=== PATIENT | female | born 1995 | race Caucasian/White ===

== ENCOUNTER → 2016-04-22 | Outpatient (CLI) | payer MEDICAID ==
[~2016-04-22] MED LIST: BACTROBAN2% TP; CITALOPRAM HYDR10 MG PO; IBUPROFEN800 MG PO; KEFLEX 500MG.500 MG PO; LORTAB 5/500 501 TAB PO; MIRENA52 MG IU; MOTRIN600 MG PO; Meclizine25 MG PO; NOMEDS XX; PHENERGAN25 M3 PO; SEPTRA DS 800 M1 TAB PO; ZOFRAN ODT4 MG PO
--- NOTE | 2016-04-23 11:01 | RADIOLOGY REPORT PS360 ---
US TRANSVAGINAL PREG ORDERING PHYSICIAN : Anjum Villalta MD PATIENT AGE: 21 years GENDER: Female INDICATION: DATES for early gestation TECHNIQUE: Transvaginal pelvic ultrasound COMPARISON: None FINDINGS Single viable intrauterine gestation . Cardiac activity is identified. Yolk sac identified. Cervix long and closed measuring 2.8 cm length. The Amnion identified Placenta appears to be likely forming posterior. measurements today yield an average ultrasound age of 10 weeks 0 days. (This compares to gestational age 10 weeks 1 days based on LMP of 02/11/2016.) Today's Mean sac size 4.25 cm = 9 weeks 5 days. CRL = 3.39 cm = 10 weeks 2 days. Yolk sac 0.65 cm. Heart rate 151 BPM. Right ovary 3.1 similar x1.3 x 1.8 cm. Left ovary 2.5 x 1.4 x 1.9 cm. No fluid in cul-de-sac. IMPRESSION: Single viable early intrauterine gestation. Average ultrasound age 10 weeks 0 days CRL = 10 week 0 day
== END ==
LOC: RAD 12:40
DX: O26.841 Uterine size-date discrepancy, first trimester (principal)

== ENCOUNTER 2016-07-07 12:08 | Outpatient (CLI) | payer MEDICAID ==
[~2016-07-07] VITALS: Ht 175.3 cm; Wt 90.7 kg
[2016-07-07 12:25] VITALS: BP 123/65
[2016-07-07] MEDS ORDERED: NATURAL IRON65 MG PO (12:39)
[2016-07-07 12:41] LABS: URINE BILIRUBIN - DIPSTICK NEGATIVE (NEG); URINE BLOOD NEGATIVE (NEG)
[2016-07-07 12:48] LABS: URINE SQUAMOUS CELLS 20-50 #/hpf (0-5)
== END 2016-07-07 13:12 | disposition home or self-care (01) ==
LOC: OBOUT 12:08 → OB 12:10 → OBOUT 13:12 → RAD 07-10 13:00
PROVIDERS: Obstetrics & Gynecology
DX: O26.92 Pregnancy related conditions, unspecified, second trimester (principal); Z3A.21 21 weeks gestation of pregnancy; R10.32 Left lower quadrant pain; R25.2 Cramp and spasm

== ENCOUNTER 2016-11-03 17:50 | Outpatient (CLI) | payer MEDICAID ==
[~2016-11-03] VITALS: Ht 175.3 cm; Wt 97.1 kg
[~2016-11-03 17:50] MED LIST changes: +NATURAL IRON65 MG PO; +PRENATAL PLUS1 TA1 PO; +VISTARIL25 M1 PO
[2016-11-03 18:10] VITALS: BP 135/82
[2016-11-03 18:10] LABS: URINE BLOOD NEGATIVE (NEG)
[2016-11-03 18:25] LABS: URINE BILIRUBIN - DIPSTICK NEGATIVE (NEG)
[2016-11-03 19:02] LABS: HEMOGLOBIN 12.5 g/dL (12.2-16.2); LYMPH % 18.5 % (10-50.0)
[2016-11-03 19:54] LABS: ABO BLOOD TYPE O; RH BLOOD TYPE POSITIVE
== END 2016-11-03 20:15 | disposition home or self-care (01) ==
LOC: OBOUT 17:50 → OB 17:51 → OBOUT 20:15
PROVIDERS: Obstetrics & Gynecology
DX: O60.03 Preterm labor without delivery, third trimester (principal); Z3A.38 38 weeks gestation of pregnancy

== ENCOUNTER 2016-11-11 01:24 | Inpatient (IN) | payer MEDICAID ==
[~2016-11-11] VITALS: Ht 175.3 cm; Wt 96.6 kg
[2016-11-11 05:04] LABS: LYMPH # 2.7 K/mm3 (0.7-4.5); LYMPH % 20.3 % (10-50.0)
[2016-11-11 05:05] VITALS: BP 134/68
[2016-11-11] MEDS ORDERED: NOMEDS XX (05:12)
[2016-11-11 05:42] LABS: ABO BLOOD TYPE O; RH BLOOD TYPE POSITIVE
[2016-11-11 07:17] VITALS: BP 133/54
--- NOTE | 2016-11-11 08:20 | LABOR NOTE ---
Laboring Subjective Subjective Date 11/11/16 Time 0818 Subjective: Pt is having regular contractions Laboring Objective Objective NST: Reactive Contractions: q 2-3 minutes Cervical dilation: 3 Effacement: 75% Station: -2 Membranes are: Artificially ruptured (with clear fluid) Fetus monitoring? Yes Type: Internal Comment: I inserted an IUPC and clip. Laboring Assessment Assessment Progressing? Yes Cephalopelvic disproportion? No Problem List: 1. 2. Normal delivery Laboring Plan Plan Anethesia for epidural? No Continue to labor down? Yes Plan for ? No Continue to monitor? Yes Start pushing? No at 0820
--- NOTE | 2016-11-11 10:02 | LABOR NOTE ---
Laboring Subjective Subjective Date 11/11/16 Time 1001 Subjective: Pt is having regular contractions Laboring Objective Objective NST: Reactive Contractions: q 2-3 minutes Cervical dilation: 4 Effacement: 90% Station: -2 Membranes are: Artificially ruptured (with clear fluid) Fetus monitoring? Yes Type: Internal Laboring Assessment Assessment Progressing? Yes Cephalopelvic disproportion? No Problem List: 1. Normal delivery Laboring Plan Plan Anethesia for epidural? Yes Continue to labor down? Yes Plan for ? No Continue to monitor? Yes Start pushing? No at 1002
--- NOTE | 2016-11-11 13:41 | LABOR NOTE ---
Laboring Subjective Subjective Date 11/11/16 Time 1340 Subjective: Pt is having regular contractions Laboring Objective Objective NST: Reactive Contractions: q 2-3 minutes Cervical dilation: 4-5 Effacement: 75% Station: -2 Membranes are: Artificially ruptured Fetus monitoring? Yes Type: Internal Laboring Assessment Assessment Progressing? Yes Cephalopelvic disproportion? No Problem List: 1. Normal delivery Laboring Plan Plan Anethesia for epidural? Yes Continue to labor down? Yes Plan for ? No Continue to monitor? Yes Start pushing? No at 1341
--- NOTE | 2016-11-11 16:45 | LABOR NOTE ---
Laboring Subjective Subjective Date 11/11/16 Time 1644 Subjective: Pt is having regular contractions Laboring Objective Objective NST: Reactive Contractions: q 2-3 minutes Cervical dilation: 6-7 Effacement: 100% Station: 0 Membranes are: Artificially ruptured Fetus monitoring? Yes Type: Internal Laboring Assessment Assessment Progressing? Yes Cephalopelvic disproportion? No Problem List: 1. Normal delivery Laboring Plan Plan Anethesia for epidural? Yes Continue to labor down? Yes Plan for ? No Continue to monitor? Yes Start pushing? No at 1644
--- NOTE | 2016-11-11 18:56 | Delivery Note ---
Delivery note Delivery date: 11/11/16 Delivery time: 1826 Anesthesia: Epidural, Chris Williamson Was labor medically induced? No Gestational age in weeks: 39 weeks Days: 2 days Delivery prior to 39 weeks? No Sex: female score at one minute: 8 at 5 minutes: 9 Type of suction: bulb AF: Clear fluid LAC or MLE: LAC (1st degree) Delivery procedure: Normal Delivery Delivery of placenta: spontaneous Clinical note She is a 21-year-old 1 now para 0 who was 39 and 1 weeks gestational age. She is had a considerable amount of pressure as well as irregular contractions. As result of this we elected to augment her labor. She was started on IV oxytocin had her membranes ruptured. Under labor epidural she progressed to full dilation and delivered spontaneously a liveborn female child at 6:25 PM in the afternoon of November 11, 2016. On delivery the head there was a tight nuchal cord which was doubly clamped and reduced. The rest of the 's body then delivered atraumatically. The oropharynx and nasopharynx were bulb suctioned. The baby cried spontaneously. The baby was then taken over to the warmer where the nurses assigned Apgars of 8 at 1 and 9 at 5 minutes. We then obtained cord blood as well as cord pH. The pH is pending. Using gentle traction on the cord and countertraction on the fundus I was able to easily deliver the placenta intact. It had a normal three-vessel cord. She had a first-degree perineal and vaginal laceration was repaired with interrupted 3-0 Vicryl repeat suture. She has O positive blood, she is rubella immune and was group B streptococcus negative. She plans to bottlefeed. Her student success coach Dr. park. Estimated blood loss was 600 mL. at 7660
[2016-11-11 19:15] VITALS: BP 137/64
[2016-11-12 06:50] LABS: HEMOGLOBIN 10.9 g/dL (12.2-16.2)
--- NOTE | 2016-11-12 07:59 | ACUTE CARE PROGRESS NOTE (QUA) ---
Progress Notes Subjective Date 11/12/16 Time 0758 Note She is doing very well this morning. She is eating and drinking and ambulating. She is bottlefeeding. Her lochia is normal. Patient/family reports: feeling better, no complaints Objective Findings Last VS-Temp:98.6 B/P:137/64 Pulse:107 Resp:16 SaO2: Last weight lbs:213 oz:0 K.616 Method:Stated Laboratory Tests 11/12/16 0602: Hgb 10.9 L, Hct 32.5 L 11/11/16 1900: Cord Blood pH 7.24 L Exam General appearance: normal appearance, alert, awake, no acute distress Reviewed: vital signs, lab results Assessment/Plan Problem List 1. Normal delivery Patient condition Improving, Stable Plan: continue current care This inpt stay is expected to cross 2 MNs from start of care Yes Comments: She is doing very well. We'll plan to send her home tomorrow. at 0318
[2016-11-12 08:36] VITALS: BP 128/58
[2016-11-12 20:17] VITALS: BP 140/62
--- NOTE | 2016-11-13 08:34 | ACUTE CARE PROGRESS NOTE (QUA) ---
Progress Notes Subjective Date 11/13/16 Time 0833 Note She is doing very well this morning. She is eating and drinking and ambulating. She is breast-feeding. Her lochia is normal. Patient/family reports: feeling better, no complaints Objective Findings Last VS-Temp:98.0 B/P:140/62 Pulse:66 Resp:16 SaO2: Last weight lbs:213 oz:0 K.616 Method:Stated Exam General appearance: normal appearance, alert, awake, no acute distress Reviewed: vital signs, lab results Assessment/Plan Problem List 1. Normal delivery Patient condition Improving, Stable Plan: continue current care, initiate discharge plan This inpt stay is expected to cross 2 MNs from start of care Yes Comments: She is doing very well and we'll plan to send her home this morning. at 0833
[2016-11-13] MEDS ORDERED: MOTRIN 400MG.400 MG PO (08:37)
--- NOTE | 2016-11-13 08:37 | Discharge Summary ---
Discharge Summary Admission date: 11/11/16 Discharge date: 11/13/16 Discharge diagnoses: Term , spontaneous vaginal delivery Clinical note: She is a 21-year-old 1 now para 1 who was 39 and 2 weeks gestational age. She was having pressure and occasional contractions. She was very uncomfortable. As result of that we elected to augment her labor. Course in hospital: She was started on IV oxytocin and had her membranes ruptured. She progressed under labor epidural to full dilation and delivered spontaneously a liveborn female child at 6:27 PM in the afternoon of November 11, 2016. The baby had Apgars of 8 at 1 and 9 at 5 minutes. She weighed 7 lbs. 0 oz. She has done well and has remained afebrile throughout her hospitalization. She is eating and drinking and ambulating. She is breast- feeding. She has O positive blood, she is rubella immune and was group B streptococcus negative. Her bank sales and service manager is Dr. park. Laboratory Tests 11/12/16 0602: Hgb 10.9 L, Hct 32.5 L 11/11/16 1900: Cord Blood pH 7.24 L 11/11/16 0435: MCH 31.1 11/11/16 0435: WBC 13.1 H, RBC 3.86 L, Hgb 12.0 L, Hct 35.0 L, MCV 90.6, RDW 12.8, Plt Count 344, MPV 8.1, Gran % 73.2, Gran # 9.6 H, Lymphocytes % 20.3, Monocytes % 4.3, Eosinophils % 1.8, Basophils % 0.4, Lymphocytes # 2.7, Monocytes # 0.6, Eosinophils # 0.2, Basophils # 0.1, PUBS MCHC 34.3, Antibody Screen NEGATIVE, Miscellaneous Test POSITIVE Plans for ongoing care: She is discharged home to follow-up with me in approximately 2 weeks' time. Discharge medications She'll continue with her vitamins and iron. She was given a prescription for Percocet 5/325, 12 tablets. She was given a pressure for Motrin 400 mg, 40 tablets. DC/follow-up instructions She was given the usual instructions with respect to limiting her activity, driving and sexual activity. Condition at discharge Stable and improved at 0836
[2016-11-13] MEDS ORDERED: PERCOCET 5/3251 EACH PO (08:38)
[2016-11-13 09:32] VITALS: BP 130/73
== END 2016-11-13 12:22 | disposition home or self-care (01) | DRG 775 ==
LOC: OB 01:24
PROVIDERS: Nurse Practitioner Obstetrics & Gynecology
PROC: 0HQ9XZZ Repair Perineum Skin, External Approach (ICD-10-PCS; principal; 2016-11-11)
PROC: 10E0XZZ Delivery of Products of Conception, External Approach (ICD-10-PCS; principal; 2016-11-11)
DX: O70.0 First degree perineal laceration during delivery (principal); Z37.0 Single live birth; Z3A.39 39 weeks gestation of pregnancy
CPT/HCPCS: C1758